=== PATIENT | female | born 1995 | race African-American/Black ===

== ENCOUNTER 2019-10-18 09:21 | Outpatient (CLI) | payer OTHER, SELFPAY ==
--- NOTE | ~2019-10-18 | US_ITS ---
EXAMINATION: US OB /maternal detail DATE: 10/18/2019 10:31 INDICATION: screening TECHNIQUE: Multiple obstetric sonographic images performed. FINDINGS: No prior studies for comparison. There is a single living fetus in vertex presentation. The placenta is anterior without placenta pre via. Amniotic fluid volume is normal. cardiac activity and movement is noted with a heart rate of 146 beats per minute. The following anatomy was identified as normal: 4 chamber heart 3 vessel cord cord insertion kidneys urinary bladder stomach spine diaphragm ventricles cisterna magna cerebellum The following biometric data were obtained: BPD: 71mm corresponds to gestational age 28 weeks 4 days. Head circumference: 254 mm corresponds to gestational age 27 weeks 4 days. Abdominal circumference: 218 mm corresponds to gestational age 26 weeks 2 days. Femur length: 52 mm corresponds to gestational age 27 weeks 5 days. Head circumference to abdominal circumference ratio: 1.16 (normal range for expected gestational age is 1.03-1.22). Estimated weight: 1020 grams +/- 153 grams using Hadlock method. IMPRESSION: 1: Single living intrauterine with an estimated gestational age of 27weeks 4days by current ultrasound measurements, with an EDC of 01/13/2020 in vertex presentation. 2. Normal survey. Reviewed, dictated and finalized at location A. IMPRESSION: 1: Single living intrauterine with an estimated gestational age of 27 weeks 4days by current ultrasound measurements, with an EDC of 01/13/2020 in milan carlos presentation. 2. Normal survey.
== END 2019-10-18 09:22 | disposition home or self-care (01) ==
PROVIDERS: Visit Provider Obstetrics & Gynecology
DX: Z34.02 Encounter for supervision of normal first pregnancy, second trimester (principal)
CPT/HCPCS: 76805

== ENCOUNTER 2020-01-04 12:42 | Outpatient (CLI) | payer OTHER, SELFPAY ==
--- NOTE | ~2020-01-04 | US_ITS ---
EXAMINATION: US OB follow up EXAM DATE: 01/04/2020 13:49 INDICATION: Size less than dates. 3rd trimester. TECHNIQUE: Pelvic obstetrical transabdominal sonogram was performed by a technologist. There are mu ltiple grayscale and Doppler images available for interpretation. Comparison is made to prior examina tion from 10/18/2019. FINDINGS: There is a single fetus identified in vertex presentation with a heart rate of 123, 134 killian ts per minute. The placenta is located in the anterior fundal position. There is no sonographic evid ence of retroplacental hemorrhage identified. Amniotic fluid index is obtained twice at 3.8, 4.7 cm, which is more than 2 standard deviations below normal expected range (7.3-23.9 centimeters). Oligohyd ramnios. BIOMETRIC DATA: Biparietal diameter (BPD): 9.1cm ----------------> 36 weeks 5 days. Head circumference (HC): 32.0 cm ----------------> 36 weeks 1 day (less than 3rd percentile). Abdominal circumference (AC): 32.0 cm ----------> 35 weeks 6 days. Femur length (FL): 7.3 cm --------------------------> 37 weeks 4 days. These measurements are concordant. HC/AC ratio is 1.0 (The 5th -- 95th percentile range is 0.92-1.06. Estimated weight is 2936 g +/- 440 g. This is the 15th percentile when the currently reported clinical gestation age 38 weeks 5 days, clinical estimated date of delivery (GUCCI-OPE) 01/13/2020 is us ed. estimated gestational age based on measurements from this exam is 36 weeks 4 days, with an estimated date of delivery (GUCCI-AUA) 01/28/2020. IMPRESSION: 1. Single fetus in vertex presentation with heart rate 123, 134 beats per minute. 2. Estimated weight of 2936 grams, 15th percentile using the currently reported clinical gesta tion age of 38 weeks 5 days, GUCCI(OPE) 01/13/2020. 3. Oligohydramnios, KARIS measured at 3.8, 4.7 cm. 4. Head circumference 2 standard deviations below normal. Reviewed, dictated and finalized at location A. IMPRESSION: 1. Single fetus in vertex presentation with heart rate 123, 134 beats per na te. 2. Estimated weight of 2936 grams, 15th percentile using the currently r eported clinical gestation age of 38 weeks 5 days, GUCCI(OPE) 01/13/2020. 3. Oligohydramnios, KARIS measured at 3.8, 4.7 cm. 4. Head circumference 2 standard deviations below normal.
== END 2020-01-04 12:43 | disposition home or self-care (01) ==
PROVIDERS: PCP Obstetrics & Gynecology; Visit Provider Obstetrics & Gynecology
DX: O36.5930 Maternal care for other known or suspected poor fetal growth, third trimester, not applicable or unspecified (principal); O41.03X0 Oligohydramnios, third trimester, not applicable or unspecified; Z3A.38 38 weeks gestation of pregnancy
CPT/HCPCS: 76816

== ENCOUNTER 2020-01-05 09:27 | Outpatient (RCR) | payer OTHER, SELFPAY ==
--- NOTE | ~2020-01-05 | US_ITS ---
EXAMINATION: US OB limited w BPP EXAM DATE: 01/05/2020 11:30 INDICATION: Amniotic Fluid Index. 3rd trimester. TECHNIQUE: Pelvic obstetrical transabdominal sonogram was performed by a technologist. There are mu ltiple grayscale and Doppler images available for interpretation. Comparison is made to prior examina tion from 01/04/2020. FINDINGS: There is a single fetus identified in vertex presentation with a heart rate of 142 beats pe r minute. The placenta is located in the anterior position. There is no sonographic evidence of retr oplacental hemorrhage identified. The amniotic fluid index is 9.0 centimeters, which is normal. BIOPHYSICAL PROFILE (performed by the technologist) breathing (30 sec sustained breathing in 30 minutes): 2 out of 2 movement (3 gross body movements in 30 minutes): 2 out of 2 tone (one episode of ppyargm-lhlsdmgub-sseptic limb movement): 2 out of 2 Amniotic fluid pocket (2 cm): 2 out of 2 Total score: 8 out of 8 IMPRESSION: 1. Single fetus with heart rate of 142 bpm. 2. Normal biophysical profile score of 8 out of 8. 3. Interval normalization of KARIS, now 9.0 cm. Reviewed, dictated and finalized at location A.
[2020-01-05 12:02] VITALS: BP 125/79; PULSE 82
--- NOTE | 2020-01-06 22:35 | HP_ITS ---
DATE OF SERVICE: 01/05/2020 Insurance number [id number], being admitted for induction of labor at 00:01 [facility]. HISTORY OF PRESENT ILLNESS: The patient is a 24-year-old female, 1, who is at 39 weeks estimated gestational age, confirmed by first trimester ultrasound. care given by Jorje Leo MD, [facility], [facility] in [place], [place]. care began on 09/08 at 24 weeks. She has had 10 visits. complicated by group B Strep carrier and candidiasis, late entry to care. She now is being admitted for induction of labor with cervidil followed by Oxytocin. I explained her condition, procedure, and risks, she understands, accepts, and agrees to proceed. ALLERGIES: NO KNOWN DRUG ALLERGIES. NO LATEX ALLERGIES. MEDICATIONS: She has bee on aspirin, vitamin, calcium, and had penicillin for group B Strep. She has had TDAP on 10/11/2019, influenza immunization on 03/25/2019. FAMILY HISTORY: For mother and maternal grandmother with gallbladder disease. 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 No alcohol, occasional caffeine. No illicit drug use. PAST SURGICAL HISTORY: Negative. COTTON DISPATCHER HISTORY: Unremarkable for STDs. This is her first . GENETIC SCREENING: Negative. INFECTION SCREENING: Remarkable for the group B Strep. PHYSICAL EXAMINATION: VITAL SIGNS: Height is 5 feet 7 inches, weight 201, BMI 31.5, blood pressure 118/86, pulse 76, respirations 16, temperature 98. HEAD AND NECK: Normal. Airway normal PULMONARY: Normal. BREASTS: Normal. CARDIOVASCULAR: Normal. ABDOMEN: Gravid, Sharpe's 39 cm. EXTREMITIES: Normal. NEURO: Normal. PSYCHIATRIC: Stable. CERVIX: Closed, long, and high, posterior, presenting part vertex confirmed by ultrasound. LABORATORY DATA: heart tones 152, category 1. Biophysical profile normal, 01/21. Blood type O positive. Antibiotic screen negative. Hemoglobin 11, hematocrit 33, platelets . One-hour glucose 102. Repeat Strep positive. HIV negative. nonreactive. Gonorrhea, chlamydia, trichomonas negative. IMPRESSION: Intrauterine at 39 weeks, maternal desire for induction, group Streptococcus carrier. PLAN: Admit, routine L and D orders, monitor observation bed and delivery protocol. section for maternal or indication. Group B Strep prophylaxis. I explained to her condition, procedure, and risks involved, she understands, accepts, and agrees to proceed. Zachery I MT: Hugh
== END 2020-01-12 07:35 | disposition home or self-care (01) ==
LOC: ANHOBOP 09:27
PROVIDERS: PCP Obstetrics & Gynecology; Visit Provider Obstetrics & Gynecology
DX: O41.03X0 Oligohydramnios, third trimester, not applicable or unspecified (principal); Z3A.38 38 weeks gestation of pregnancy
CPT/HCPCS: 59025; 76815; 76819

== ENCOUNTER 2020-01-07 00:05 | Inpatient (IN) | payer OTHER, SELFPAY ==
--- NOTE | 2020-01-06 18:50 | HP_ITS ---
DATE OF SERVICE: 01/05/2020 Insurance number [id number], being admitted for induction of labor at 00:01 [facility]. HISTORY OF PRESENT ILLNESS: The patient is a 24-year-old female, 1, who is at 39 weeks estimated gestational age, confirmed by first trimester ultrasound. care given by Jorje Leo MD, [facility], [facility] in [place], [place]. care began on 09/08 at 24 weeks. She has had 10 visits. complicated by group B Strep carrier and candidiasis, late entry to care. She now is being admitted for induction of labor with cervidil followed by Oxytocin. I explained her condition, procedure, and risks, she understands, accepts, and agrees to proceed. ALLERGIES: NO KNOWN DRUG ALLERGIES. NO LATEX ALLERGIES. MEDICATIONS: She has bee on aspirin, vitamin, calcium, and had penicillin for group B Strep. She has had TDAP on 10/11/2019, influenza immunization on 03/25/2019. FAMILY HISTORY: For mother and maternal grandmother with gallbladder disease. 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 No alcohol, occasional caffeine. No illicit drug use. PAST SURGICAL HISTORY: Negative. COMMERCIAL COLLECTIONS SPECIALIST HISTORY: Unremarkable for STDs. This is her first . GENETIC SCREENING: Negative. INFECTION SCREENING: Remarkable for the group B Strep. PHYSICAL EXAMINATION: VITAL SIGNS: Height is 5 feet 7 inches, weight 201, BMI 31.5, blood pressure 118/86, pulse 76, respirations 16, temperature 98. HEAD AND NECK: Normal. Airway normal PULMONARY: Normal. BREASTS: Normal. CARDIOVASCULAR: Normal. ABDOMEN: Gravid, Sharpe's 39 cm. EXTREMITIES: Normal. NEURO: Normal. PSYCHIATRIC: Stable. CERVIX: Closed, long, and high, posterior, presenting part vertex confirmed by ultrasound. LABORATORY DATA: heart tones 152, category 1. Biophysical profile normal, 01/21. Blood type O positive. Antibiotic screen negative. Hemoglobin 11, hematocrit 33, platelets . One-hour glucose 102. Repeat Strep positive. HIV negative. nonreactive. Gonorrhea, chlamydia, trichomonas negative. IMPRESSION: Intrauterine at 39 weeks, maternal desire for induction, group Streptococcus carrier. PLAN: Admit, routine L and D orders, monitor observation bed and delivery protocol. section for maternal or indication. Group B Strep prophylaxis. I explained to her condition, procedure, and risks involved, she understands, accepts, and agrees to proceed. D I MT: [facility] Dictated By: Jorje Leo MD 01/06/20 1850 Transcribed Date/Time: 01/06/202022 Signed By: Jorje Leo MD 01/07/20 0811 [facility]
[2020-01-07] VITALS (132 sets, daily range): BP systolic 70–148; BP diastolic 48–103; PULSE 69–159; RESP 15–17; TEMP 36.2–37.5; O2SAT 81–100; BMI 31.6
[2020-01-07 00:43] LABS: Basophils Percent Auto 0.3 % (0.2-1.2); Eosinophils Absolute Auto 0.1 K/mm3 (0-0.3); Eosinophils Percent Auto 0.9 % (0-4.4); Hematocrit 33.7 % (37.0-47.0); Hemoglobin 10.6 g/dL (12.0-15.0); Immature Granulocyte Absolute 0.03 K/mm3 (0.00-0.031); Immature Granulocyte Percent A 0.3 % (0-0.5); Lymphocytes Absolute Auto 1.84 K/mm3 (0.9-3.2); Lymphocytes Percent Auto 21.4 % (18.3-44.2); Mean Corpuscular HGB Conc 31.5 g/dl (32-36); Mean Corpuscular Hemoglobin 24.8 pg (26-34); Mean Corpuscular Volume 78.7 fl (80-100); Mean Platelet Volume 9.3 fl (7.4-10.4); Monocytes Absolute Auto 0.5 K/mm3 (0.1-0.6); Monocytes Percent Auto 5.6 % (2.6-8.5); Neutrophils Absolute Auto 6.1 K/mm3 (1.3-6.7); Neutrophils Percent Auto 71.5 % (45.5-73.1); Platelet Count Result 260 k/mm3 (150-375); Red Blood Count 4.28 M/mm3 (4.2-5.4); White Blood Count 8.6 K/mm3 (4.5-10.0)
[2020-01-07] MEDS: LACTATED RINGERS 1,000 ML 125 ML IV CONT ×3 (00:43→18:40)
[2020-01-07] MEDS: AMPICILLIN 2 GM/NS 100 ML 2 GM/100 ML BAG IVPB (00:43)
--- NOTE | 2020-01-07 00:43 | LDADM ---
This patient, Janny Ruffin, was admitted to Labor/Delivery/Recovery 108 on 01/07/20 at 00:05. Plans for labor, pain management and were discussed with patient. Patient/family oriented to hospital policies and general routines including ID bracelet, bed and alarms, visiting hours, pain management, procedures, bathroom and other care routines, personal items, smoking policy, room service/diet and guest tray routines, infant security routines, and visiting hours. Patient/Family are encouraged to report perceived risks to care and to ask questions if they do not understand what they are told or what they should do. See OBIX for further documentation.
[2020-01-07] MEDS: DINOPROSTONE 10 MG VAG INSERT VAGINAL (01:19)
[2020-01-07 02:07] LABS: Amphetamine Screen Urine Negative (Negative); Barbiturate Screen Urine Negative (Negative); Benzodiazepines Screen Urine Negative (Negative); Cannabinoid Screen Urine Negative (Negative); Cocaine Screen Urine Negative (Negative); Methadone Screen Urine Negative (Negative); Opiate Screen Urine Negative (Negative); Phencyclidine Screen Urine Negative (Negative)
[2020-01-07] MEDS: AMPICILLIN 1 GM/NS 50 ML 1 GM/50 ML BAG IVPB ×4 (04:39→17:04)
--- NOTE | 2020-01-07 08:52 | PM.OBPNLAB ---
Pain Control Date/time seen: 01/07/20 08:52 Pain control: tolerating well Comments: cervidil iol Pelvic Exam Dilation (cm): 0 Effacement (%): 0 station: -4 Amniotic membrane status: Intact Contractions Monitor mode: External Status status: Category l Assessment and Plan Assessment: induction ongoing Plan: continuous present management
--- NOTE | 2020-01-07 10:49 | WPDANESEPP ---
Anes - Eval Pre Procedure Procedure: labor pain management Date/Time: 01/07/20 10:49 Surgeon: Ahmet Preop Diagnosis: pain during labor Pre Op Diagnosis: IOL Patient Data Age: 24 Gender: F Height: 5 ft 7 in Weight: 91.5 kg Last Vital Signs Temp 97.5 F L 01/07/20 07:59 Pulse 104 H 01/07/20 10:00 BP 107/77 01/07/20 10:00 Allergies Allergy/AdvReac Type Severity Reaction Status Date / Time No Known Allergies Allergy Verified 12/30/19 14:31 Home Medications Medication Instructions Recorded Confirmed Type PNV cmb#95-ferrous fumarate-FA 1 tablet PO DAILY 12/30/19 12/30/19 History [] aspirin 81 mg PO DAILY 12/30/19 12/30/19 History cholecalciferol (vitamin D3) 50 mcg PO DAILY 12/30/19 12/30/19 History [Vitamin D3] Laboratory Tests 01/07/20 01/07/20 01/07/20 00:38 00:38 00:38 WBC 8.6 K/mm3 K/mm3 (4.5-10.0) RBC 4.28 M/mm3 M/mm3 (4.2-5.4) Hgb 10.6 g/dL L g/dL (12.0-15.0) Hct 33.7 % L % (37.0-47.0) MCV 78.7 fl L fl (80-100) MCH 24.8 pg L pg (26-34) MCHC 31.5 g/dl L g/dl (32-36) RDW 17.0 % H % (11.5-14.5) Plt Count 260 k/mm3 k/mm3 (150-375) MPV 9.3 fl fl (7.4-10.4) Immature Gran % (Auto) 0.3 % % (0-0.5) Neut % (Auto) 71.5 % % (45.5-73.1) Lymph % (Auto) 21.4 % % (18.3-44.2) [place] % (Auto) 5.6 % % (2.6-8.5) Eos % (Auto) 0.9 % % (0-4.4) Baso % (Auto) 0.3 % % (0.2-1.2) Lymph # (Auto) 1.84 K/mm3 K/mm3 (0.9-3.2) [place] # (Auto) 0.5 K/mm3 K/mm3 (0.1-0.6) Eos # (Auto) 0.1 K/mm3 K/mm3 (0-0.3) Baso # (Auto) 0.0 K/mm3 K/mm3 (0.0-0.1) Abs Immat Gran (auto) 0.03 K/mm3 K/mm3 (0.00-0.031) Absolute Neuts (auto) 6.1 K/mm3 K/mm3 (1.3-6.7) Absolute Nucleated RBC 0.0 K/mm3 K/mm3 (0.0-0.012) Nucleated RBC % 0.0 % % (0.0-0.2) Urine Opiates Screen Urine Methadone Screen Ur Barbiturates Screen Ur Phencyclidine Scrn Ur Amphetamine Screen U Benzodiazepines Scrn Urine Cocaine Screen U Cannabinoids Screen RPR Pending Blood Type O Positive Antibody Screen Negative 01/07/20 01:38 WBC RBC Hgb Hct MCV MCH MCHC RDW Plt Count MPV Immature Gran % (Auto) Neut % (Auto) Lymph % (Auto) [place] % (Auto) Eos % (Auto) Baso % (Auto) Lymph # (Auto) [place] # (Auto) Eos # (Auto) Baso # (Auto) Abs Immat Gran (auto) Absolute Neuts (auto) Absolute Nucleated RBC Nucleated RBC % Urine Opiates Screen Negative (Negative) Urine Methadone Screen Negative (Negative) Ur Barbiturates Screen Negative (Negative) Ur Phencyclidine Scrn Negative (Negative) Ur Amphetamine Screen Negative (Negative) U Benzodiazepines Scrn Negative (Negative) Urine Cocaine Screen Negative (Negative) U Cannabinoids Screen Negative (Negative) RPR Blood Type Antibody Screen : gestational age (01/13/20) Patient hx anesthesia problems: none Family hx anesthesia problems: none PMFSH Past Medical History Medical History (Updated 01/07/20 @ 10:49 by Lorna Harris CRNA) Chronic GERD Obesity Social History Social History Smoking status: Never smoker Substance use: never Gender identity (if verbalized by the patient): Female Spiritual care concerns: No Exam Day of Procedure 01/07/20 10:49
[2020-01-07 10:52] LABS: Rapid Plasma Reagin Non-Reactive (NonReactive)
--- NOTE | 2020-01-07 14:34 | PM.OBPNLAB ---
Pain Control Date/time seen: 01/07/20 14:34 Pain control: tolerating well Pelvic Exam Dilation (cm): 2 Effacement (%): 50 station: -4 Amniotic membrane status: Intact Contractions Monitor mode: External Contraction pattern: Regular Contraction phase: Resting Contraction intensity: Mild Status status: Category l Assessment and Plan Assessment: induction ongoing Plan: continuous present management and begin patient augmentation
--- NOTE | 2020-01-07 16:40 | PM.OBPNLAB ---
Pain Control Date/time seen: 01/07/20 16:40 Pain control: tolerating well and epidural Pelvic Exam Dilation (cm): 3 Effacement (%): 80 station: -2 Amniotic membrane status: Ruptured Comments: arom iupc placed Contractions Monitor mode: External Contraction pattern: Regular Contraction phase: Resting Contraction intensity: Mild Status status: Category l Assessment and Plan Assessment: induction ongoing Plan: continuous present management and begin patient augmentation
[2020-01-07] MEDS: OXYTOCIN 30 UNITS/NS 500 ML 30 UNITS/500 ML BAG 6 UNITS IV CONT (17:04)
--- NOTE | 2020-01-07 18:43 | PM.OBPNLAB ---
Pain Control Date/time seen: 01/07/20 9760 Pain control: tolerating well and epidural Pelvic Exam Dilation (cm): 5 Effacement (%): 80 station: -2 Amniotic membrane status: Ruptured Contractions Monitor mode: External Contraction frequency: 5 Contraction duration: 45 Contraction pattern: Regular Contraction phase: Resting Contraction intensity: Moderate Status status: Category l Assessment and Plan Pitocin rate (mU/min): 1 Assessment: active labor Plan: continuous present management
--- NOTE | 2020-01-07 18:45 | PM.OBPNLAB ---
Pain Control Date/time seen: 01/07/20 18:45 Pain control: tolerating well and epidural Pelvic Exam Dilation (cm): 5 Effacement (%): 80 station: -2 Amniotic membrane status: Ruptured Contractions Monitor mode: External Contraction frequency: 5 Contraction pattern: Regular Contraction phase: Resting Contraction intensity: Moderate Status status: Category ll Assessment and Plan Pitocin rate (mU/min): 4 Assessment: active labor, induction ongoing and other (repetitive decels) Plan: continuous present management and (IF INTOLERANCE OF LABOR EXISTS)
--- NOTE | 2020-01-07 19:44 | PM.OBPNLAB ---
Pain Control Date/time seen: 01/07/20 19:44 Pain control: tolerating well and epidural Pelvic Exam Dilation (cm): 5 Effacement (%): 80 station: -2 Amniotic membrane status: Ruptured Contractions Monitor mode: External Contraction frequency: 5 Contraction pattern: Regular Contraction phase: Resting Contraction intensity: Moderate Status status: Category ll Assessment and Plan Assessment: other (arrest of dilation failure to progress intolerance of labor) Plan:
--- NOTE | 2020-01-07 20:50 | PM.OBPRVD ---
OB - Delivery Note Procedure Delivery date: 01/07/20 Procedure: Procedures Operation Date: 01/07/20 19:50 <Primary Low Transverse section> events: Labor Induction Intrapartal events: Failure to Progress in Labor and Deceleration ( intolerance of labor) Induction method: per misoprostol protocol and per pitocin protocol Delivery augmentation: rupture of membranes Delivery monitor: external FHT, internal FHT and internal uterine Route of delivery: Specimen: Yes (placenta) Estimated blood loss (mL): 808 Anesthesia type: Epidural Disposition: floor Complications: none Baby Date of : 01/07/20 Time of : 20:08 Weeks of gestation at delivery: 40 Infant gender: Male Weight (pounds): 5 Weight (ounces): 8 presentation: vertex position: Left Occiput Transverse Placenta delivery description: Manual Removal cord vessel description: 3 Vessels, Nuchal Cord and Tight score one minute: 8 score five minutes: 9
[2020-01-08] VITALS (11 sets, daily range): BP systolic 111–132; BP diastolic 56–87; PULSE 82–110; RESP 16–20; TEMP 36.6–37.4; O2SAT 98–100
[2020-01-08] MEDS: DEXTROSE 5%/0.45% SOD CHL 1,000 ML 125 ML IV CONT (02:00)
[2020-01-08 05:09] LABS: Basophils Absolute Auto 0.1 K/mm3 (0.0-0.1); Basophils Percent Auto 0.5 % (0.2-1.2); Eosinophils Percent Auto 0.1 % (0-4.4); Hematocrit 27.6 % (37.0-47.0); Hemoglobin 8.6 g/dL (12.0-15.0); Immature Granulocyte Absolute 0.04 K/mm3 (0.00-0.031); Immature Granulocyte Percent A 0.4 % (0-0.5); Lymphocytes Absolute Auto 1.41 K/mm3 (0.9-3.2); Lymphocytes Percent Auto 12.5 % (18.3-44.2); Mean Corpuscular HGB Conc 31.2 g/dl (32-36); Mean Corpuscular Hemoglobin 24.8 pg (26-34); Mean Corpuscular Volume 79.5 fl (80-100); Monocytes Absolute Auto 0.5 K/mm3 (0.1-0.6); Monocytes Percent Auto 4.3 % (2.6-8.5); Neutrophils Absolute Auto 9.3 K/mm3 (1.3-6.7); Neutrophils Percent Auto 82.2 % (45.5-73.1); Platelet Count Result 219 k/mm3 (150-375); Red Blood Count 3.47 M/mm3 (4.2-5.4); Red Cell Distribution Width 17.1 % (11.5-14.5); White Blood Count 11.3 K/mm3 (4.5-10.0)
[2020-01-08] MEDS: KETOROLAC 30 MG/ML VIAL (*BKC) IV PUSH (05:56)
[2020-01-08] MEDS: MULTIVIT/MIN/PREN/FOL AC/IRON TABLET 1 TAB PO (09:16)
[2020-01-08] MEDS: DOCUSATE SODIUM 100 MG CAPSULE PO ×2 (09:16→17:53)
[2020-01-08] MEDS: POLYSACCHARIDE IRON COMPLEX 150 MG CAPSULE PO ×2 (09:17→17:53)
--- NOTE | 2020-01-08 09:24 | OP_ITS ---
DATE OF PROCEDURE: 01/07/2020 PREOPERATIVE DIAGNOSES: Intrauterine at 39 weeks, induction of labor, GBS positive, anemia, intolerance of labor, failure to progress, and arrest of dilation. POSTOPERATIVE DIAGNOSES: Intrauterine at 39 weeks, induction of labor, GBS positive, anemia, intolerance of labor, failure to progress, and arrest of dilation, delivered a viable male infant, nuchal cord x1, and meconium-stained amniotic fluid. PROCEDURE: Primary low transverse section with delivery of a viable male infant. SURGEON: Jorje Leo MD. ASSISTANTS: OB Techs, Manas and Orestes; labor nurses, Austin and Tej; nursery nurses, Melody and Alice. ANESTHESIA: Epidural by Clinton Knight CRNA. BLOOD LOSS: 880. FLUIDS: 2,000. CUEVA: 300. COUNTS: Correct. COMPLICATIONS: None. SPECIMENS TO PATHOLOGY: Placenta, cord gases, and cord blood. ANTIBIOTIC PROPHYLAXIS: During labor, penicillin for and Ancef 2 g. VTE PREVENTION: SCDs. DISPOSITION: The patient was taken to the recovery room in stable condition. FINDINGS: A viable male infant, delivered at 2017, Apgars of 9 and 9, weight 2490 g, 5 pounds 8 ounces, 18-1/2 inches long, taken to the nursery in stable condition. Placenta at 2021, intact, 3-vessel cord. Uterus, tubes, and ovaries normal. OPERATIVE PROCEDURE: The patient was taken to the operating room and epidural anesthesia was elevated for control of her delivery. Cueva catheter was in place. The abdomen was prepped and draped in the usual sterile fashion. Time-out was performed. A Pfannenstiel incision was made to the skin and then the abdomen was opened in layers. Hemostasis was obtained by cauterization. A transverse incision was made to the fascia and extended bilaterally and undermined inferiorly and superiorly. The rectus muscles were at the midline. The peritoneum was entered, and the transverse incision was then made to the uterus and extended bilaterally digitally. vertex was then delivered via the abdominal incision with the nuchal cord reduced. The infant was delivered and placed on the maternal abdomen. The cord was clamped and cut. The was handed to the nursery nurse in stable condition. Placenta, cord gases, and cord blood were obtained. Placenta delivered intact, 3-vessel cord. The uterus contracted well. Pitocin was given intravenously and 10 units intramyometrially. Blood and clots and membranes were removed from the intrauterine cavity. The uterine incision was repaired in 2 layers with 0 Vicryl in a running interlocking fashion, second being an imbricating stitch. Blood and clots were removed from the cul-de-sac and both lateral gutters after irrigation. Sponge, needle, and instrument counts were correct. The anterior peritoneum was closed with 0 Vicryl suture in a running fashion. The fascia was closed with #2 Quill SRS system bilaterally. The Sergey fascia was reapproximated with 2-0 plain and the skin was closed with Insorb absorbable phyllis under the skin and Dermabond to the skin and Aquacel dressing was applied. The patient tolerated the procedure well and was taken to the recovery room in stable condition. Zachery Tyshawn MT: Hugh
--- NOTE | 2020-01-08 12:58 | PM.OBPNVD ---
OB - PN: Subj Subjective Date/time seen: 01/08/20 12:58 POD#1 Pt reports doing well. Her pain is well controlled with the PO pain meds. She is tolerating water and crackers w/o N/V, waiting on lunch to be delivered. The ellis catheter is still in place; to be removed @ 1245 today. She is passings flatus. She has not ambulated yet but denies s/sx of anemia while laying in bed. Her vaginal bleeding is lessening. She is breast feeding. She would like her son to be circumcised. No CP, SOB, fever, chills, HEADLEY, N/V, abdominal pain, dizziness, palpitations. OB - PN: Obj Data Labs CBC & Chem 7: 01/08/20 04:21 Labs: Laboratory Results - last 24 hr 01/08/20 04:21 WBC 11.3 H RBC 3.47 L Hgb 8.6 L Hct 27.6 L MCV 79.5 L MCH 24.8 L MCHC 31.2 L RDW 17.1 H Plt Count 219 MPV 10.0 Immature Gran % (Auto) 0.4 Neut % (Auto) 82.2 H Lymph % (Auto) 12.5 L [place] % (Auto) 4.3 Eos % (Auto) 0.1 Baso % (Auto) 0.5 Lymph # (Auto) 1.41 [place] # (Auto) 0.5 Eos # (Auto) 0.0 Baso # (Auto) 0.1 Abs Immat Gran (auto) 0.04 H Absolute Neuts (auto) 9.3 H Absolute Nucleated RBC 0.0 Nucleated RBC % 0.0 OB - PN A/P Assessment and Plan (1) S/P section: Code(s): Z98.891 - History of uterine scar from previous surgery Status: Acute Plan day: 1 Plan: routine care Comments: - ellis to be removed today - diet to be advanced - pain meds PRN - ambulation encouraged - anticipate discharge home tomorrow afternoon/evening - circumcision to be performed tomorrow Time Spent With Patient Time: Total time spent is greater than 50% in coordination of care (as documented) at patient's floor/unit and/or counseling patient: Review of Systems Review of Systems: All systems reviewed & are unremarkable except as noted in HPI and below (HPI) Exam Const: General: comfortable, no acute distress, alert and awake Orientation/consciousness: patient oriented x3 Resp: Effort & Inspection: normal respiratory effort Auscultation: clear to auscultation bilaterally Cardio: Rate: regular rate GI: Auscultation: normal bowel sounds Other: non-distended, soft, appropriately tender, pfannenstiel incision covered w/ c/d/i dressing : Other: fundus firm below umbilicus, normal lochia Urinary Catheter: Urinary Catheter: patent and draining Psych: Appearance: grossly normal Affect: normal affect Attitude: cooperative Judgement: Good judgement present (Psych)
--- NOTE | 2020-01-08 14:42 | WPDANLDPN2 ---
Anes-Prog Note L&D Date/Time: 01/08/20 14:42 Comfortable throughout: labor and section Neuraxial method: epidural Epidural/Spinal procedure site: clean & non-tender Neuro status: Neuro function grossly intact. Cardiovascular status: normal Respiratory status: normal Airway patency: baseline Mental status: baseline Post-Op hydration status: normal Vital Signs: Last Vital Signs Temp 36.6 C 01/08/20 08:26 Pulse 104 H 01/08/20 08:26 Resp 20 01/08/20 08:26 BP 121/81 01/08/20 08:26 Pulse Ox 100 01/08/20 08:26 Pain score (VAS): 0/10. Patient resting in bed at time of assessment, appears comfortable. Support person at bedside. I/O: Intake & Output 01/07/20 01/08/20 01/08/20 23:59 07:59 15:59 Intake Total 8409 281 7860 Output Total 7040 898 [id number] Dsijdib -230 -988 -330 Post-procedural complaints: none Patient feedback: Patient satisfied with anesthetic care.
--- NOTE | 2020-01-08 14:43 | WPDANLDNPN2 ---
Anes-Prog Note L&D-Neuraxial Date/Time: 01/08/20 14:43 Neuraxial medications: epidural PF morphine Opiod-related complaints: none Patient feedback: Patient satisfied with post-operative pain management.
[2020-01-08] MEDS: IBUPROFEN 600 MG TABLET PO (17:52)
[2020-01-09] MEDS: IBUPROFEN 600 MG TABLET PO ×3 (01:48→16:41)
[2020-01-09] MEDS: MULTIVIT/MIN/PREN/FOL AC/IRON TABLET 1 TAB PO (08:52)
[2020-01-09] MEDS: POLYSACCHARIDE IRON COMPLEX 150 MG CAPSULE PO ×2 (08:52→16:40)
[2020-01-09] MEDS: DOCUSATE SODIUM 100 MG CAPSULE PO ×2 (08:52→16:40)
[2020-01-09 09:10] VITALS: BP 109/72; PULSE 94; RESP 18; TEMP 36.7
--- NOTE | 2020-01-09 11:39 | PM.OBPNVD ---
OB - PN: Subj Subjective Date/time seen: 01/09/20 11:39 POD#2 Pt doing well. Pain controlled on PO meds. Tolerating regular diet. Voiding spontaneously. Passing Flatus. 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 Son was circumcised today. Desires to go home tonight. No N/V, CP, SOB, HEADLEY, vision changes, dizziness, fever, chills, or palpitations. OB - PN: Obj Data Labs CBC & Chem 7: 01/08/20 04:21 OB - PN A/P Assessment and Plan (1) S/P section: Code(s): Z98.891 - History of uterine scar from previous surgery Status: Acute Plan day: 2 Plan: discharge home, follow up 6 weeks (with Dr. Leo) and other (all discharge instructions and return precautions discussed in detail) Time Spent With Patient Time: Total time spent is greater than 50% in coordination of care (as documented) at patient's floor/unit and/or counseling patient: Review of Systems Review of Systems: All systems reviewed & are unremarkable except as noted in HPI and below (HPI) Exam Const: General: comfortable, no acute distress, alert and awake Orientation/consciousness: patient oriented x3 Resp: Effort & Inspection: normal respiratory effort Cardio: Rate: regular rate GI: Other: soft, non-distended, appropriately tender, pfannenstiel incision covered with clean dressing : Other: fundus firm at umbilicus, normal lochia Psych: Appearance: grossly normal Affect: normal affect Attitude: cooperative
--- NOTE | 2020-01-09 12:00 | PC.NURSE ---
Patient viewed the discharge video Mother & Baby Care, The First Two Weeks . Patient was given the opportunity and encouraged to ask questions. Patient verbalized understanding of information shared and has been given the mother/baby guide for home reference.
--- NOTE | 2020-01-19 14:49 | PM.OBDSVD ---
DS: Admitting Diagnosis Admitting Diagnosis Admitting Diagnosis: Encounter for supervision of normal , unspecified, third trimester term induction of labor DS: Discharge Diagnosis Discharge Diagnosis (1) Obesity: Code(s): E66.9 - Obesity, unspecified Status: Acute (2) S/P section: Code(s): Z98.891 - History of uterine scar from previous surgery Status: Acute (3) Term delivered: Code(s): O80 - Encounter for full-term uncomplicated delivery Status: Acute (4) Failure to progress in labor: Code(s): O62.2 - Other uterine inertia Status: Acute (5) CPD (cephalo-pelvic disproportion): Code(s): O33.9 - Maternal care for disproportion, unspecified Status: Acute OB - DS: Summary Hospital Course Time spent discussing smoking cessation with patient: 3 to 10 minutes OB Procedures : Ultrasound OB Procedures Intrapartum: OB Procedures: : Antibiotics Peripartum Data Delivery Method: Section Procedures: Procedures Operation Date: 01/07/20 19:50 Actual Procedures Side Surgeon p Section Not Applicable Jorje Leo MD complications: none Lowry 1: Gender: Female Disposition of : home Status at Discharge Functional status at discharge: independent ambulation Overall status at discharge: patient is back to baseline Time Spent with Patient Time attestation: Total time spent providing and/or coordinating discharge services:30 min Time spent: Less than 30 minutes Exam Const: General: cooperative, healthy appearing and comfortable Nutritional Appearance: average body habitus Orientation/consciousness: oriented to person, oriented to place, oriented to time and patient oriented x3 Limitations: no limitations Eyes: General: appearance normal, both eyes and all related structures Chest: Chest palpation & inspection: normal inspection of the chest Breast/axilla inspection: normal inspection of the breasts Breast/axilla palpation: normal palpation of the breasts Resp: Effort & Inspection: normal respiratory effort Auscultation: clear to auscultation bilaterally Cardio: Rate: regular rate Rhythm: regular rhythm GI: Inspection: normal to inspection Percussion: Yes normal to percussion Auscultation: normal bowel sounds : External Female Exam: normal external appearance Back/Spine/Pelvis: Back: no CVA tenderness Skin: General skin exam: normal color Neuro: General: oriented to person, oriented to place, oriented to time and patient oriented x3 Gait exam (Neuro): Normal gait present Motor exam (neuro): 5/5 motor strength present throughout Extrem: General: normal to inspection Psych: Appearance: grossly normal Mental Status: mental status grossly normal Speech and movement: Normal speech and movement present Affect: normal affect Attitude: cooperative Thought process: Normal thought process present Thought content: Yes Normal thought content present Insight: Good insight present (Psych) Judgement: Good judgement present (Psych) DS: Data Data Completed and Pending Completed studies during hospitalization: Pending at discharge 01/07/20 21:27 Surgical [PTH] Routine Discharge Plan Discharge Attending physician on discharge: Jorje Leo Discharging Clinician: Jorje Leo Anticipated Discharge Date/Time: 01/10/20 15:54 Patient Disposition: Home, Self-Care Activity: may shower, no straining and may drive after 2 weeks Diet: as tolerated and regular Wound Care Instructions: follow printed instructions Discharge Instructions: Education: Mom and Baby Guide and Preeclampsia Handout Given to: Mother Follow-Up: Call your delivering provider's office for an appointment to be seen in: call for an appointment Mom and baby should come to the [facility] for the follow-up ap
== END 2020-01-09 17:16 | disposition home or self-care (01) | DRG 540 ==
LOC: ANHLDR 20:55 → ANHOB2 01-08 00:11
PROVIDERS: Admitting Provider Obstetrics & Gynecology; Visit Provider Obstetrics & Gynecology
PROC: 10D00Z1 Extraction of Products of Conception, Low, Open Approach (ICD-10-PCS; CPT 59514; principal; 2020-01-07 19:50)
DX: O62.0 Primary inadequate contractions (principal); O76 Abnormality in fetal heart rate and rhythm complicating labor and delivery; O99.824 Streptococcus B carrier state complicating childbirth; O69.1XX0 Labor and delivery complicated by cord around neck, with compression, not applicable or unspecified; Z3A.39 39 weeks gestation of pregnancy; Z37.0 Single live birth
CPT/HCPCS: 36415; 80307; 85025; 86592; 86850; 86900; 86901; 88307; A9270; J0290; J1885; J2001; J2274; J2405; J2590; J2795; J3010; J7120

== ENCOUNTER 2020-04-11 09:13 | Emergency (ER) | payer OTHER, SELFPAY ==
--- NOTE | ~2020-04-11 | XR_ITS ---
EXAMINATION: XR wrist LT min 3V DATE: 04/11/2020 10:06 INDICATION: Radial left wrist pain. TECHNIQUE: Posteroanterior, ulnar deviation, oblique, and lateral views of the left wrist were obtain ed. COMPARISON: none FINDINGS: Alignment is normal. No fracture. Joint spaces are normal. Soft tissues are unremarkable. IMPRESSION: 1. Negative left wrist radiographs. Reviewed, dictated and finalized at location B.
[2020-04-11 09:25] VITALS: BP 121/73; PULSE 86; RESP 18; TEMP 36.8; O2SAT 100
--- NOTE | 2020-04-11 09:48 | ED.EXTPRO ---
HPI - Extremity Problem General Chief complaint: Extremity Injury, Upper Stated complaint: left wrist pain Time Seen by Provider: 04/11/20 09:19 Source: patient Mode of arrival: ambulatory Limitations: no limitations History of Present Illness HPI Narrative: Patient presents to the emergency department for left wrist pain x2 weeks. Is unsure of a certain injury or trauma. Reports pain is on the radial side of the wrist. Worse with movement and relieved with rest. Denies fever, erythema, edema, decreased range of motion, or numbness. Related Data Home Medications Medication Instructions Recorded Confirmed PNV cmb#95-ferrous fumarate-FA 1 tablet PO DAILY 12/30/19 12/30/19 [] cholecalciferol (vitamin D3) 50 mcg PO DAILY 12/30/19 12/30/19 [Vitamin D3] Allergies Allergy/AdvReac Type Severity Reaction Status Date / Time No Known Allergies Allergy Verified 04/11/20 09:31 Review of Systems Review of Systems: Narrative: CONSTITUTIONAL: Denies fever SKIN: Denies rash MUSCULOSKELETAL: Reports joint pain, and myalgia. NEUROLOGIC: Denies numbness, or weakness. All systems reviewed & are unremarkable except as noted in HPI and below PMFSH Past Medical History Medical History (Updated 04/11/20 @ 10:15 by Karely Mcginnis PA-C) Chronic GERD Obesity Family History Family History Mother Breast cancer Grandparent Breast cancer Social History Social History Smoking status: Never smoker Substance use: never Gender identity (if verbalized by the patient): Female Spiritual care concerns: No Exam Narrative: Exam Narrative: GENERAL: Well-appearing, well-nourished, and in no acute distress. HEAD: Normocephalic, atraumatic. EYES: EOMI. EXTREMITIES: Normal range of motion. No edema, erythema or obvious deformity. Normal sensation. Normal radial pulses. Fuel Cell Binder strength equal SKIN: Warm, dry, no rash. NEURO: No focal deficits. Alert and oriented x3. PSYCH: Normal mood and affect Course Vital Signs Vital signs: Vital Signs Temperature 98.3 F 04/11/20 09:25 Pulse Rate 86 04/11/20 09:25 Respiratory Rate 18 04/11/20 09:25 Blood Pressure 121/73 04/11/20 09:25 Pulse Oximetry 100 04/11/20 09:25 Temperature 98.3 F 04/11/20 09:25 Pulse Rate 86 04/11/20 09:25 Respiratory Rate 18 04/11/20 09:25 Blood Pressure 121/73 04/11/20 09:25 Pulse Oximetry 100 04/11/20 09:25 MDM - Extremity (Nontraumatic) MDM Narrative Medical decision making narrative: Patient presents to the emergency department for left wrist pain x2 weeks. No known injury or trauma. Patient is neurovascularly intact. Left wrist x-rays without acute findings. Patient was instructed to rest, ice and take [id number] pain medication as needed. She is to follow-up with primary care doctor. She was given warnings to return to the ER Imaging Data Radiologist's impression: ITS Impressions Wrist X-Ray 04/11/20 10:07 IMPRESSION: 1. Negative left wrist radiographs. Critical Care Time Critical Care Time Critical Care Time: No Discharge Plan Discharge Clinical Impression: Acute pain of left wrist Patient Disposition: Home, Self-Care Condition: Stable Instructions: Tendinitis (ED) Additional Instructions: Return to the emergency department if you experience fever, redness and swelling of your arm, numbness, or any other symptoms that are concerning to you Wear ALICIA wrap. Ice and elevate extremity. Tylenol or ibuprofen as needed for pain Follow up with primary care doctor for further care. Prescriptions: No Action cholecalciferol (vitamin D3) [Vitamin D3] 50 mcg (2,000 unit) Tablet 50 mcg PO DAILY RF: 0 PNV cmb#95-ferrous fumarate-FA [] 28 mg iron- 800 mcg Tablet 1 tablet PO DAILY RF: 0 Follow-up/Referrals: Angela Mark MD [Physician] - 1 Week PHYSICIAN,PROJECT ADMINISTRATIVE ASSISTANT [Primary Ca
[2020-04-11 11:04] VITALS: BP 120/74; PULSE 85; RESP 18; O2SAT 100
== END 2020-04-11 11:07 | disposition home or self-care (01) ==
PROVIDERS: Emergency Provider Emergency Medicine
DX: M25.532 Pain in left wrist (principal); K21.9 Gastro-esophageal reflux disease without esophagitis; E66.9 Obesity, unspecified; Z68.29 Body mass index [BMI] 29.0-29.9, adult
CPT/HCPCS: 73110; 99283